=== PATIENT | female | born 1955 | race Caucasian/White ===

== ENCOUNTER 2017-11-03 20:35 | Emergency (ER) | payer OTHER ==
[~2017-11-03] VITALS: Ht 162.6 cm; Wt 67.6 kg
[2017-11-03] MEDS ORDERED: FISH OIL 1,001000 M2 PO (21:58)
[2017-11-03] MEDS ORDERED: VITAMIN D1000 UNI2 PO (21:59)
== END 2017-11-03 23:05 | disposition home or self-care (01) ==
LOC: ER 20:35
DX: S01.01XA Laceration without foreign body of scalp, initial encounter (principal); W01.0XXA Fall on same level from slipping, tripping and stumbling without subsequent striking against object, initial encounter; Y93.01 Activity, walking, marching and hiking; Y92.830 Public park as the place of occurrence of the external cause; Y99.8 Other external cause status